=== PATIENT | female | born 1975 | race Caucasian/White ===

== ENCOUNTER 2025-11-25 03:12 | Day surgery (SDC) | payer BC, MEDICAID, SELFPAY ==
[2025-11-25] VITALS (14 sets, daily range): BP systolic 129–206; BP diastolic 82–121; PULSE 80–106; RESP 17–18; TEMP 36.2–36.9; O2SAT 98–100; BMI 25.7
--- NOTE | 2025-11-25 03:15 | XRR_ITS ---
PROCEDURE INFORMATION: Exam: XR Chest Exam date and time: 11/25/2025 3:21 AM Age: 49 years old Clinical indication: C/O food bolus in throat. Points just inferior to larynx where she feels it. ; Additional info: Dyspnea/cough TECHNIQUE: Imaging protocol: Radiologic exam of the chest. Views: 1 view. COMPARISON: No relevant prior studies available. FINDINGS: Lungs: Minor areas of bibasilar atelectasis or scarring. No consolidation. Pleural spaces: Unremarkable. No pleural effusion. No pneumothorax. Heart/Mediastinum: Large heart. Bones/joints: Unremarkable. XR/XR chest 1V portable [id number] IMPRESSION: 1. No definite acute finding. 2. Minor areas of bibasilar atelectasis or scarring.
--- OUTSIDE RECORDS SUMMARY | 2025-11-25 03:19 | XMS_ITS | Encounter Summary ---
Author Organization [facility] [place] Address [address] [facility] Attn: Epic Prelude ADT [place] [address] Care Team Providers Care General Office Clerk Name Role Phone Conversion, History Primary Care Provider Judy flores Encounter Details Date Type Department Care Team (Latest Contact Info) Description 07/26/1996 Emergency Melissa Patel, DO [address] [place] [address] Social History Tobacco Use Types Packs/Day Years Used Date Smoking Tobacco: Never Assessed Comments Unknown Sex and Gender Information Value Date Recorded Sex Assigned at Not on file Legal Sex Female 12:02 PM 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
--- OUTSIDE RECORDS SUMMARY | 2025-11-25 03:19 | XMS_ITS | Encounter Summary ---
Author Organization [employer] [facility] [facility] Address [address] [address] Care Team Providers Care Labor Expediter Name Role Phone Conversion, History Primary Care Provider Judy flores Encounter Details Date Type Department Care Team (Latest Contact Info) Description 10/20/2009 Outpatient Historical [facility] Conversion [address] [place] [address] Yony Viveros, DO [address] [place], [place] [id number] Anxiety State, Unspecified (Primary Dx); Issue of Repeat Prescriptions Social History Tobacco Use Types Packs/Day Years Used Date Smoking Tobacco: Never Assessed Comments Unknown Sex and Gender Information Value Date Recorded Sex Assigned at Not on file Legal Sex Female 12:02 PM 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
--- OUTSIDE RECORDS SUMMARY | 2025-11-25 03:19 | XMS_ITS | Encounter Summary ---
Author Organization [facility] Address [address] [facility] [place] [address] Care Team Providers Care Drilling Foreman Name Role Phone Conversion, History Primary Care Provider Judy flores Encounter Details Date Type Department Care Team (Late st Contact Info) Description 06/12/2006 Emergency [facility] Emergency Services [address] [facility] [place] [phone] Reid Antony MD [address] [facility] [place] [phone] Ed, Physician NO ADDRESS ON FILE Dysphagia (Primary Dx) Social History Tobacco Use Types Packs/Day Years Used Date Smoking Tobacco: Never Assessed Comments Unknown Sex and Gender Information Value Date Recorded Sex Assigned at Not on file Legal Sex Female 12:02 PM UPHOLSTERER INSIDE Gender Identity Not on file Sexual Orientation Not on file documented as of this encounter Plan of Treatment Not on file documented as of this encounter Visit Diagnoses Diagnosis Dysphagia- Primary documented in this encounter Care Teams Drilling Foreman Relationship Specialty Start Date End Date Conversion, History NO ADDRESS ON FILE PCP - General 06/30/09 07/14/13 documented as of this encounter
--- OUTSIDE RECORDS SUMMARY | 2025-11-25 03:19 | XMS_ITS | Encounter Summary ---
Author Organization [facility] Address [address] [facility] [place] [address] Care Team Providers Care Delinquent Notice Machine Operator Name Role Phone Conversion, History Primary Care Provider Judy flores Encounter Details Date Type Department Care Team (Late st Contact Info) Description 10/20/2009 Emergency [facility] Emergency Services [address] [facility] [place] [phone] Yony Viveros, DO [address] [place] [address] Ed, Physician NO ADDRESS ON FILE Anxiety State, Unspecified (Primary Dx) Social History Tobacco Use Types Packs/Day Years Used Date Smoking Tobacco: Never Assessed Comments Unknown Sex and Gender Information Value Date Recorded Sex Assigned at Not on file Legal Sex Female 12:02 PM CURATOR OF COLLECTIONS Gender Identity Not on file Sexual Orientation Not on file documented as of this encounter Plan of Treatment Not on file documented as of this encounter Visit Diagnoses Diagnosis Anxiety state, unspecified- Primary documented in this encounter Care Teams Delinquent Notice Machine Operator Relationship Specialty Start Date End Date Conversion, History NO ADDRESS ON FILE PCP - General 06/30/09 07/14/13 documented as of this encounter
--- OUTSIDE RECORDS SUMMARY | 2025-11-25 03:19 | XMS_ITS | Encounter Summary ---
Author Organization [employer] [facility] Address [address] [address] Care Team Providers Care Him Specialist Name Role Phone Conversion, History Primary Care Provider Judy flores Encounter Details Date Type Department Care Team (Latest Contact Info) Description 03/09/2010 Outpatient Historical [facility] Conversion [address] [facility] [place] [address] Luis Antonio Mack MD NO ADDRESS ON FILE Contact Dermatitis and Other Eczema due to Plants (except Food) (Primary Dx) Social History Tobacco Use Types Packs/Day Years Used Date Smoking Tobacco: Never Assessed Comments Unknown Sex and Gender Information Value Date Recorded Sex Assigned at Not on file Legal Sex Female 12:02 PM 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
--- OUTSIDE RECORDS SUMMARY | 2025-11-25 03:19 | XMS_ITS | Encounter Summary ---
Author Organization [facility] Address [address] [address] Care Team Providers Care Food Service Clerk Name Role Phone Conversion, History Primary Care Provider Judy flores Encounter Details Date Type Department Care Team (Latest Contact Info) Description 03/15/2008 Inpatient Historical Historical [facility] Lab Conversion, History NO ADDRESS ON FILE Hirsutism (Primary Dx) Social History Tobacco Use Types Packs/Day Years Used Date Smoking Tobacco: Never Assessed Comments Unknown Sex and Gender Information Value Date Recorded Sex Assigned at Not on file Legal Sex Female 12:02 PM COAT EXAMINER Gender Identity Not on file Sexual Orientation Not on file documented as of this encounter Plan of Treatment Not on file documented as of this encounter Visit Diagnoses Diagnosis Hirsutism- Primary documented in this encounter Care Teams Food Service Clerk Relationship Specialty Start Date End Date Conversion, History NO ADDRESS ON FILE PCP - General 06/30/09 07/14/13 documented as of this encounter
--- OUTSIDE RECORDS SUMMARY | 2025-11-25 03:19 | XMS_ITS | Clinical Summary ---
Author Organization [facility] Address [address] [facility] [place] [address] Phone Care Team Providers Care Manager Career Name Role Phone Unavailable Primary Care Provider Unavailabl e Allergies Active Allergy Reactions Criticality Noted Date Comments Penicillins Unknown 07/15/2013 States her mother states don't take Medications methylPREDNISol one (Medrol, Ck,) 4 mg Tablets, Dose PackIndications :Postviral syndrome,Cough, Sore throat,Allergic rhinitis, unspecified seasonality, unspecified trigger As directed 1 Each 02/24/20 20 Active fluticasone propionate (FLONASE) 50 mcg/spray Rossiter, Suspension nasal inhalerIndicati ons:Postviral syndrome,Cough, Sore throat,Allergic rhinitis, unspecified seasonality, unspecified trigger Administer 2 Sprays in each nostril daily. 16 Gram 02/24/20 20 Active phenylephrine-g uaiFENesin 10-400 mg TabletIndicatio ns:Postviral syndrome,Cough, Sore throat,Allergic rhinitis, unspecified seasonality, unspecified trigger Take 1 Tablet by mouth 4 times daily as needed (congestion). 30 Tablet 02/24/20 20 Active promethazine-de xtromethorphan (PHENERGAN-DM) 6.25-15 mg/5 mL syrupIndication s:Postviral syndrome,Cough, Sore throat,Allergic rhinitis, unspecified seasonality, unspecified trigger Take 5 mL by mouth every 4 hours as needed for Cough. 240 mL 1 02/24/20 20 Active diphenhydrAMINE 12.5 mg/5 mL-viscous lidocaine-Maalo x 1:1:1 (MAGIC MOUTHWASH) oral suspension compoundIndicat ions:Postviral syndrome,Cough, Sore throat,Allergic rhinitis, unspecified seasonality, unspecified trigger Take 5 mL by mouth see administration instructions. 50 mL each; gargle and spit 10 ml QID prn sore throat 150 mL 02/24/20 20 Active LORazepam (ATIVAN) 2 mg tablet Take 2 mg by mouth every 8 hours as needed for Anxiety. Active predniSONE (DELTASONE) 10 mg tablet 3 tabs p.o. daily for 3 days, 2 tabs p.o. daily for 3 days, 1 tab p.o. daily for 5 days. 20 Tablet None 07/14/20 20 Active Active Problems Problem Noted Date Diagnosed Date Food impaction of esophagus 12/06/2019 Cellulitis and abscess of face 06/02/2014 Spider bite wound 06/02/2014 Diabetes mellitus type 2, controlled Polycystic ovarian syndrome Dysphagia Eosinophilic esophagitis Immunizations Immunization Administration Dates Next Due INFLUENZA VACCINE QUADRIVALENT 3 YR UP PF IM Influenza Seasonal Unspecified Formulation IM Family History Medical History Relation Name Comments Healthy Brother 1 Healthy Brother 2 Healthy Father Unknown Father Healthy Mother Hypertension Mother Other Mother Relation Name Status Comments Brother 1 Alive Brother 2 Alive Father Alive Mother Alive Social History Tobacco Use Types Packs/Day Years Used Date Smoking Tobacco: Never Smokeless Tobacco: Never Tobacco Cessation:Counseling Given: No Alcohol Use Standard Drinks/Week Comments No 0 (1 standard drink = 0.6 oz pur e alcohol) Comments No Sex and Gender Information Value Date Recorded Sex Assigned at Not on file Legal Sex Female 12:02 PM WOOD CARVER HAND Gender Identity Not on file Sexual Orientation Not on file Occupation Industry Job Start Date Job End Date Not on file Not on file Not on file Not on file Last Filed Vital Signs Vital Sign Reading Time Taken Comments Blood Pressure 158/93 07/14/2020 2:01 AM CDT Pulse 114 02/24/2020 11:16 AM CDT Temperature 37.2 C (98.9 F) 07/14/2020 2:01 AM CDT Respiratory Rate 20 07/14/2020 2:01 AM CDT Oxygen Saturation 100% 07/14/2020 2:01 AM CDT Inhaled Oxygen Concentration - - Weight 81 kg (178 lb 9.2 oz) 07/14/2020 2:01 AM CDT Height 162.6 cm (5' 4 ) 02/24/2020 11:16 AM CDT Body Mass Index 30.65 02/24/2020 11:16 AM CDT Plan of Treatment Health Maintenance Due Date Last Done Comments DIABETES ANNUAL FOOT EXAM 1995 DIABETES ANNUAL RETINAL EXAM 1995 DIABETES HBA1C Q 6 MONTHS 1995 DIABETES MICROALBUMIN ANNUAL SCREEN 1995 LDL CHOLESTEROL ANNUAL 1995 DTAP/TDAP/TD VACCINES (1 - Tdap) 1996 HEPATITIS B VACCINES (1 of 3 - 19+ 3-dose series) 1996 HPV/Cotest (21-29) 1998 CERVICAL CANCER SCREENING 2007 HPV/Cotest (30-65) 2007 PAP SMEAR 2007 BREAST CANCER SCREENING 2017 COLORECTAL SCREENING 2022 Colorectal Cancer Screening 2022 FIT-DNA Q 3 years 2022 FIT/FOBT Q 1 year 2022 Flex Sig/CT Colonography Q 5 years 2022 INFLUENZA VACCINE (#1) 2025 08/30/2019, 2014 Advance Directives For more information, please contact: [phone] * Full Code (Latest Code Status on File) Date Activated Date Inactivated Comments 12/06/2019 12:49 AM 12/06/2019 5:55 PM * Full Code Date Activated Date Inactivated Comments 12/23/2017 11:17 PM 12/24/2017 2:20 AM * Full Code Date Activated Date Inactivated Comments 06/02/2014 12:32 PM 06/05/2014 4:33 PM * Full Code Date Activated Date Inactivated Comments 06/02/2014 12:32 PM 06/02/2014 12:32 PM
--- OUTSIDE RECORDS SUMMARY | 2025-11-25 03:19 | XMS_ITS | Encounter Summary ---
Author Organization [facility] Address [address] [facility] [place] [address] Care Team Providers Care Station Cleaning Porter Name Role Phone Conversion, History Primary Care Provider Judy flores Encounter Details Date Type Department Care Team (Late st Contact Info) Description 03/09/2010 Emergency [facility] Emergency Services [address] [facility] [place] [phone] Luis Antonio Mack MD NO ADDRESS ON FILE Ed, Physician NO ADDRESS ON FILE Contact Dermatitis and Other Eczema due to Plants (except Food) (Primary Dx) Social History Tobacco Use Types Packs/Day Years Used Date Smoking Tobacco: Never Assessed Comments Unknown Sex and Gender Information Value Date Recorded Sex Assigned at Not on file Legal Sex Female 12:02 PM 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
--- OUTSIDE RECORDS SUMMARY | 2025-11-25 03:19 | XMS_ITS | Encounter Summary ---
Author Organization [facility] Address [address] [facility] Attn: Epic Prelude ADT [place] [address] Care Team Providers Care Personnel Quality Assurance Auditor Name Role Phone Conversion, History Primary Care Provider Judy flores Encounter Details Date Type Department Care Team (Latest Contact Info) Description 04/04/1996 Emergency Plaster, Bull Soto MD NO ADDRESS ON FILE Social History Tobacco Use Types Packs/Day Years Used Date Smoking Tobacco: Never Assessed Comments Unknown Sex and Gender Information Value Date Recorded Sex Assigned at Not on file Legal Sex Female 12:02 PM 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
--- OUTSIDE RECORDS SUMMARY | 2025-11-25 03:19 | XMS_ITS | Encounter Summary ---
Author Organization [facility] Address [address] [facility] [place] [address] Care Team Providers Care Copy Reader Name Role Phone Conversion, History Primary Care Provider Judy flores Encounter Details Date Type Department Care Team (Late st Contact Info) Description 06/09/2006 Emergency [facility] Emergency Services [address] [facility] [place] [phone] Reid Antony MD [address] [facility] [place] [phone] Ed, Physician NO ADDRESS ON FILE Dysphagia (Primary Dx) Social History Tobacco Use Types Packs/Day Years Used Date Smoking Tobacco: Never Assessed Comments Unknown Sex and Gender Information Value Date Recorded Sex Assigned at Not on file Legal Sex Female 12:02 PM 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
--- OUTSIDE RECORDS SUMMARY | 2025-11-25 03:19 | XMS_ITS | Encounter Summary ---
Author Organization [facility] Address [address] [address] Care Team Providers Care Oracle Sql Developer Name Role Phone Conversion, History Primary Care Provider Judy flores Encounter Details Date Type Department Care Team (Latest Contact Info) Description 09/15/2008 Inpatient Historical Historical [facility] Rad Conversion, History NO ADDRESS ON FILE Polycystic Ovaries (Primary Dx) Social History Tobacco Use Types Packs/Day Years Used Date Smoking Tobacco: Never Assessed Comments Unknown Sex and Gender Information Value Date Recorded Sex Assigned at Not on file Legal Sex Female 12:02 PM SENIOR SPECIALIST Gender Identity Not on file Sexual Orientation Not on file documented as of this encounter Plan of Treatment Not on file documented as of this encounter Visit Diagnoses Diagnosis Polycystic ovaries- Primary documented in this encounter Care Teams Oracle Sql Developer Relationship Specialty Start Date End Date Conversion, History NO ADDRESS ON FILE PCP - General 06/30/09 07/14/13 documented as of this encounter
--- OUTSIDE RECORDS SUMMARY | 2025-11-25 03:19 | XMS_ITS | Encounter Summary ---
Author Organization [facility] Address [address] [facility] [place] [address] Care Team Providers Care Academic Services Professional Name Role Phone Conversion, History Primary Care Provider Judy flores Encounter Details Date Type Department Care Team (Late st Contact Info) Description 01/19/2008 Emergency [facility] Emergency Services [address] [facility] [place] [phone] Debo Hawkins MD [address] [place] [address] [address] Ed, Physician NO ADDRESS ON FILE Acute Pharyngitis (Primary Dx) Social History Tobacco Use Types Packs/Day Years Used Date Smoking Tobacco: Never Assessed Comments Unknown Sex and Gender Information Value Date Recorded Sex Assigned at Not on file Legal Sex Female 12:02 PM OFFICE HELPER Gender Identity Not on file Sexual Orientation Not on file documented as of this encounter Plan of Treatment Not on file documented as of this encounter Visit Diagnoses Diagnosis Acute pharyngitis- Primary documented in this encounter Care Teams Academic Services Professional Relationship Specialty Start Date End Date Conversion, History NO ADDRESS ON FILE PCP - General 06/30/09 07/14/13 documented as of this encounter
--- OUTSIDE RECORDS SUMMARY | 2025-11-25 03:19 | XMS_ITS | Encounter Summary ---
Author Organization [facility] Address [address] [address] Care Team Providers Care Relocation Counselor Name Role Phone Conversion, History Primary Care Provider Judy flores Encounter Details Date Type Department Care Team (Latest Contact Info) Description 01/07/2008 Inpatient Historical Historical [facility] Lab Conversion, History NO ADDRESS ON FILE Esophageal Reflux (Primary Dx) Social History Tobacco Use Types Packs/Day Years Used Date Smoking Tobacco: Never Assessed Comments Unknown Sex and Gender Information Value Date Recorded Sex Assigned at Not on file Legal Sex Female 12:02 PM CLAIM ADMINISTRATOR Gender Identity Not on file Sexual Orientation Not on file documented as of this encounter Plan of Treatment Not on file documented as of this encounter Visit Diagnoses Diagnosis Esophageal reflux- Primary documented in this encounter Care Teams Relocation Counselor Relationship Specialty Start Date End Date Conversion, History NO ADDRESS ON FILE PCP - General 06/30/09 07/14/13 documented as of this encounter
--- OUTSIDE RECORDS SUMMARY | 2025-11-25 03:19 | XMS_ITS | Encounter Summary ---
Author Organization [facility] Address [address] [place] [address] Care Team Providers Care Shed Workers Supervisor Name Role Phone Conversion, History Primary Care Provider Judy flores Encounter Details Date Type Department Care Team (Latest Contact Info) Description 09/18/2005 Outpatient Historical Imaging Services [address] [place] [phone] Eric Chacon MD [address] [place] [address], [place] [address] HIRSUTISM (Primary Dx) Social History Tobacco Use Types Packs/Day Years Used Date Smoking Tobacco: Never Assessed Comments Unknown Sex and Gender Information Value Date Recorded Sex Assigned at Not on file Legal Sex Female 12:02 PM 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
--- OUTSIDE RECORDS SUMMARY | 2025-11-25 03:19 | XMS_ITS | Encounter Summary ---
Author Organization [facility] Address [address] [facility] [place] [address] Care Team Providers Care Science And Operations Officer Name Role Phone Conversion, History Primary Care Provider Judy flores Encounter Details Date Type Department Care Team (Late st Contact Info) Description 09/06/[address] [facility] Emergency Services [address] [facility] [place] [address] Donna Sharpe (Danny)MD [address] [address] [place] [address] Dysphagia, Unspecified (Primary Dx) Social History Tobacco Use Types Packs/Day Years Used Date Smoking Tobacco: Never Assessed Comments Unknown Sex and Gender Information Value Date Recorded Sex Assigned at Not on file Legal Sex Female 12:02 PM HOSPITAL EDUCATION COORDINATOR Gender Identity Not on file Sexual Orientation Not on file documented as of this encounter Plan of Treatment Not on file documented as of this encounter Visit Diagnoses Diagnosis Dysphagia, unspecified(787.20)- Primary Dysphagia, unspecified documented in this encounter Care Teams Science And Operations Officer Relationship Specialty Start Date End Date Conversion, History NO ADDRESS ON FILE PCP - General 06/30/09 07/14/13 documented as of this encounter
--- OUTSIDE RECORDS SUMMARY | 2025-11-25 03:19 | XMS_ITS | Encounter Summary ---
Author Organization [facility] Address [address] [address] Care Team Providers Care Diaper Machine Tender Name Role Phone Conversion, History Primary Care Provider Judy flores Encounter Details Date Type Department Care Team (Latest Contact Info) Description 11/08/2009 Outpatient Historical JOPL Conversion [address] [place] [address] [facility] [address] [phone] Dysphagia, Unspecified (Primary Dx); Unspecified Esophagitis Social History Tobacco Use Types Packs/Day Years Used Date Smoking Tobacco: Never Assessed Comments Unknown Sex and Gender Information Value Date Recorded Sex Assigned at Not on file Legal Sex Female 12:02 PM PATTERN STORAGE CLERK Gender Identity Not on file Sexual Orientation Not on file documented as of this encounter Plan of Treatment Not on file documented as of this encounter Visit Diagnoses Diagnosis Dysphagia, unspecified(787.20)- Primary Dysphagia, unspecified Esophagitis, unspecified documented in this encounter Care Teams Diaper Machine Tender Relationship Specialty Start Date End Date Conversion, History NO ADDRESS ON FILE PCP - General 06/30/09 07/14/13 documented as of this encounter
--- OUTSIDE RECORDS SUMMARY | 2025-11-25 03:19 | XMS_ITS | Encounter Summary ---
Author Organization [facility] Address [address] [facility] [place] [address] Care Team Providers Care Fagoter Name Role Phone Conversion, History Primary Care Provider Judy flores Encounter Details Date Type Department Care Team (Late st Contact Info) Description 01/05/2011 Emergency [facility] Emergency Services [address] [facility] [place] [address] Charlotte Duran, DO [address] [place] [address] Ed, Physician NO ADDRESS ON FILE Periapical abscess without sinus (Primary Dx) Social History Tobacco Use Types Packs/Day Years Used Date Smoking Tobacco: Never Assessed Comments Unknown Sex and Gender Information Value Date Recorded Sex Assigned at Not on file Legal 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
--- OUTSIDE RECORDS SUMMARY | 2025-11-25 03:19 | XMS_ITS | Encounter Summary ---
Author Organization [facility] Address [address] [address] Care Team Providers Care Veneer Glue Jointer Feedback Name Role Phone Conversion, History Primary Care Provider Judy flores Encounter Details Date Type Department Care Team (Latest Contact Info) Description 05/13/2006 Inpatient Historical Historical [facility] Joseph Khanna MD [address] [facility] [place] [phone] (Work) Other Ovarian Hyperfunction (Primary Dx) Social History Tobacco Use Types Packs/Day Years Used Date Smoking Tobacco: Never Assessed Comments Unknown Sex and Gender Information Value Date Recorded Sex Assigned at Not on file 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
--- OUTSIDE RECORDS SUMMARY | 2025-11-25 03:19 | XMS_ITS | Encounter Summary ---
Author Organization [facility] Address [address] [facility] [place] [address] Care Team Providers Care Lump Maker Name Role Phone Conversion, History Primary Care Provider Judy flores Encounter Details Date Type Department Care Team (Late st Contact Info) Description 06/09/2006 Emergency [facility] Emergency Services [address] [place] [phone] Franky Haider, DO [address] [place] [address] Sj Ed, Physician NO ADDRESS ON FILE Dysphagia (Primary Dx) Social History Tobacco Use Types Packs/Day Years Used Date Smoking Tobacco: Never Assessed Comments Unknown Sex and Gender Information Value Date Recorded Sex Assigned at Not on file 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
--- OUTSIDE RECORDS SUMMARY | 2025-11-25 03:19 | XMS_ITS | Clinical Summary ---
Author Organization [facility] Address [address] [place]: Epic Prelude ADT [place] [address] Care Team Providers Care Vault Attendant Name Role Phone Unavailable Primary Care Provider Unavailabl e Allergies Active Allergy Reactions Criticality Noted Date Comments Penicillins Unknown 07/15/2013 States her mother states don't take Medications fluticasone propionate (FLONASE) 50 mcg/spray [place], Suspension nasal inhalerIndicati ons:Postviral syndrome,Cough, Sore throat,Allergic rhinitis, unspecified seasonality, unspecified trigger Administer 2 Sprays in each nostril daily. 16 Gram 0 0 Active methylPREDNISol one (MEDROL DOSPACK) 4 mg Tablets, Dose Pack Take as per the instructions on the package 21 Tablet 1 Active ondansetron (ZOFRAN) 4 mg Tablet Take 1 Tablet (4 mg) by mouth every 8 hours as needed for Nausea. 20 Tablet 1 Active ibuprofen (MOTRIN) 800 mg tablet Take 1 Tablet (800 mg) by mouth every 8 hours as needed for Pain, Moderate or Pain, Severe. 25 Tablet 1 4 Active Active Problems Problem Noted Date Diagnosed Date Food impaction of esophagus 12/06/2019 Spider bite wound 06/02/2014 Cellulitis and abscess of face 06/02/2014 Polycystic ovarian syndrome Diabetes mellitus type 2, controlled Dysphagia Eosinophilic esophagitis Immunizations Immunization Administration Dates [...] Date Smoking Tobacco: Never Smokeless Tobacco: Never Alcohol Use Standard Drinks/Week Comments No 0 (1 standard drink = 0.6 oz pur e alcohol) Feeling Safe Answer Date Recorded Are you in a relationship wi th someone who hurts you emotionally and/or physically? 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 Gender Identity Not on file Sexual Orientation Not on file Last Filed Vital Signs Vital Sign Reading Time Taken Comments Blood Pressure 175/91 04/15/2025 6:35 AM CDT Pulse 112 05/24/2024 12:45 AM CDT Temperature 36.4 C (97.5 F) 04/15/2025 6:35 AM CDT Respiratory Rate 16 04/15/2025 6:35 AM CDT Oxygen Saturation 100% 04/15/2025 6:35 AM CDT Inhaled Oxygen Concentration - - Weight 65.8 kg (145 lb) 04/15/2025 6:35 AM CDT Height 162.6 cm (5' 4 ) 04/15/2025 6:35 AM CDT Body Mass Index 24.89 04/15/2025 6:35 AM CDT Plan of Treatment Health Maintenance Due Date Last Done Comments DIABETES ANNUAL FOOT EXAM 1995 DIABETES ANNUAL RETINAL EXAM 1995 DIABETES HBA1C Q 6 MONTHS 1995 DIABETES MICROALBUMIN ANNUAL SCREEN 1995 LDL CHOLESTEROL ANNUAL 1995 DTAP/TDAP/TD VACCINES (1 - Tdap) 1996 HEPATITIS B VACCINES (1 of 3 - 19+ 3-dose series) 1996 HPV/Cotest (21-29) 1998 CERVICAL CANCER SCREENING 2007 HPV/Cotest (30-) 2007 PAP SMEAR 2007 BREAST CANCER SCREENING 2017 COLORECTAL SCREENING 2022 Colorectal Cancer Screening 2022 FIT-DNA Q 3 years 2022 FIT/FOBT Q 1 year 2022 Flex Sig/CT Colonography Q 5 years 2022 INFLUENZA VACCINE (#1) 2025 08/30/2019, 2014 Insurance [facility] MEDICAID
--- OUTSIDE RECORDS SUMMARY | 2025-11-25 03:19 | XMS_ITS | Encounter Summary ---
Author Organization [facility] Address [address] [address] Care Team Providers Care Systems Integrator Name Role Phone Conversion, History Primary Care Provider Judy flores Encounter Details Date Type Department Care Team (Latest Contact Info) Description 11/06/2008 Inpatient Historical [facility] [place] [address] [facility] [place] [phone] Rivera Rosales MD [address] 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
--- OUTSIDE RECORDS SUMMARY | 2025-11-25 03:19 | XMS_ITS | Encounter Summary ---
Author Organization [facility] Address [address] [facility] [place] [address] Care Team Providers Care Principal Android Developer Name Role Phone Conversion, History Primary Care Provider Judy flores Encounter Details Date Type Department Care Team (Late st Contact Info) Description 12/29/2007 Emergency [facility] Emergency Services [address] [facility] [place] [phone] Fermín Oscar MD NO ADDRESS ON FILE Ed, Physician NO ADDRESS ON FILE Urinary Tract Infection, Site not Specified (Primary Dx) Social History Tobacco Use Types Packs/Day Years Used Date Smoking Tobacco: Never Assessed Comments Unknown Sex and Gender Information Value Date Recorded Sex Assigned at Not on file Legal 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
--- OUTSIDE RECORDS SUMMARY | 2025-11-25 03:19 | XMS_ITS | Encounter Summary ---
Author Organization [facility] Address [address] [facility] [address] [place] [address] Care Team Providers Care Metallurgical Engineering Teacher Name Role Phone Conversion, History Primary Care Provider Judy flores Encounter Details Date Type Department Care Team (Late st Contact Info) Description 09/27/2008 Emergency [facility] Emergency Services [address] [facility] [place] [phone] Jonas Kidd DO NO ADDRESS ON FILE Ed, Physician NO ADDRESS ON FILE Contusion of Face, Scalp, and Neck except Eye(s) (Primary Dx) Social History Tobacco Use Types Packs/Day Years Used Date Smoking Tobacco: Never Assessed Comments Unknown Sex and Gender Information Value Date Recorded Sex Assigned at Not on file Legal 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
--- OUTSIDE RECORDS SUMMARY | 2025-11-25 03:19 | XMS_ITS | Encounter Summary ---
Author Organization [facility] Address [address] [facility] [place] [address] Care Team Providers Care Staff Mine Warfare Officer Name Role Phone Conversion, History Primary Care Provider Judy flores Encounter Details Date Type Department Care Team (Late st Contact Info) Description 10/23/2008 Emergency [facility] Emergency Services [address] [facility] [place] [phone] Christopher Uriostegui MD [address] [place] [phone] Ed, Physician NO ADDRESS ON FILE Insect Bite Head (Primary Dx) Social History Tobacco Use Types Packs/Day Years Used Date Smoking Tobacco: Never Assessed Comments Unknown Sex and Gender Information Value Date Recorded Sex Assigned at Not on file 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
--- OUTSIDE RECORDS SUMMARY | 2025-11-25 03:19 | XMS_ITS | Encounter Summary ---
Author Organization [employer] [facility] Address [address] [address] Care Team Providers Care Fur Designer Name Role Phone Conversion, History Primary Care Provider Judy flores Encounter Details Date Type Department Care Team (Latest Contact Info) Description 01/05/2011 Outpatient Historical JOP[facility] Conversion [address] [facility] [place] [address] Roger Artis, Franky Mccollum, [address] [place] [address] Periapical abscess without sinus (Primary Dx); Unspecified disorder of the teeth and supporting structures Social History Tobacco Use Types Packs/Day Years Used Date Smoking Tobacco: Never Assessed Comments Unknown Sex and Gender Information Value Date Recorded Sex Assigned at Not on file Legal Sex Female 12:02 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
--- OUTSIDE RECORDS SUMMARY | 2025-11-25 03:19 | XMS_ITS | Encounter Summary ---
Author Organization [facility] Address [address] [facility] [place] [address] Care Team Providers Care Mend Worker Name Role Phone Conversion, History Primary Care Provider Judy flores Encounter Details Date Type Department Care Team (Late st Contact Info) Description 06/30/2009 Emergency [facility] Emergency Services [address] [place] [phone] Christopher Uriostegui MD [address] [place] [phone] Ed, Physician NO ADDRESS ON FILE Contact Dermatitis and Other Eczema due to Plants (except Food) (Primary Dx) Social History Tobacco Use Types Packs/Day Years Used Date Smoking Tobacco: Never Assessed Comments Unknown Sex and Gender Information Value Date Recorded Sex Assigned at Not on file Legal Sex Female 12:02 PM DENIAL MANAGEMENT 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
--- NOTE | 2025-11-25 03:25 | ED_ITS ---
HPI - General Adult 2 General: Chief complaint: Airway/Esophagus Foreign Body Stated complaint: Food Bolus Time Seen by Provider: 11/25/25 03:17 History of Present Illness: 49-year-old female presents emergency ro om complaint difficulty swallowing. She think she has an esophageal food bolus she has had this multiple times in the past. Associated symptoms: Deny chest pain, dyspnea or rash Related Data Allergies Allergy/AdvReac Type Severity Reaction Status Date / Time Penicillins Allergy Unknown Verified 11/25/25 03:23 Review of Systems 2 Const: Denies: fever(s) or chills Card: Denies: chest pain Resp: Denies: dyspnea GI: Denies: abdominal pain : Denies: dysuria, urinary frequency or urinary urgency Musc: Denies: neck pain or back pain Skin/Breast: Denies: rash Physical Exam 2 Const: GENERAL APPEARANCE: cooperative ORIENTATION/CONSCIOUSNESS: Yes awake, Yes oriented to person, Yes oriented to place and Yes oriented to time HENMT: COMMON NORMALS: normocephalic, atraumatic and hearing grossly normal bilaterally HEAD & SCALP: normocephalic and atraumatic Resp: COMMON NORMALS: normal respiratory effort, No retractions, No use of accessory muscles and clear to auscultation bilaterally AUSCULTATION: clear to auscultation bilaterally Cardio: COMMON NORMALS: regular rate, regular rhythm and No murmurs present (Cardio) RATE: regular rate RHYTHM: regular rhythm GI: COMMON NORMALS: Soft to palpation and No hepatosplenomegaly present A USCULTATION: Yes normoactive bowel sounds PALPATION: Yes Soft to palpation, No Tenderness to palpation present (GI), No Guarding due to palpation present (GI) and Yes No hepatosplenomegaly present Extremity: COMMON NORMALS: normal to inspection, capillary refill normal, no clubbing, cyanosis or edema, no calf tenderness and no pedal edema Neuro: SENSORIUM/ORIENTATION: Yes oriented to person, Yes oriented to place and Yes oriented to time Skin: COMMON NORMALS: no rashes or lesions noted GENERAL SKIN EXAM: no rashes or lesions noted Course 2 Vital Signs: Vital signs: Vital Signs Temperature 98.5 F 11/25/25 03:20 Pulse Rate 106 H 11/25/25 03:20 Respiratory Rate 18 11/25/25 03:20 Blood Pressure 185/116 11/25/25 04:08 Pulse Oximetry 100 11/25/25 04:08 Oxygen Delivery Me thod Room Air 11/25/25 04:08 MDM - General Adult Medical Decision Making Esophageal food bolus began at 9:00 tonight. Patient given glucagon single dose. Chest x-ray is normal. White count 12 5 hemoglobin 14.7 patient has no respiratory compromise and is stable at this time blood pressure is mildly elevated. Will give a single dose of labetalol.. Discussed with on-call surgery. Patient will go for EGD to relieve the food bolus Lab Data 11/25/25 03:24 11/25/25 03:24 Laboratory Results WBC 12.52 10^3/uL (3.29-11.43) H 11/25/25 03:24 RBC 4.98 10^6/uL (3.85-5.65) 11/25/25 03:24 Hgb 14.70 g/dL (11.27-16.99) 11/25/25 03:24 Hct 44.9 % (36-47) 11/25/25 03:24 MCV 90.2 fl (85-98) 11/25/25 03:24 MCH 29.5 pg (27-33) 11/25/25 03:24 MCHC 32.7 g/dL (30-55) 11/25/25 03:24 RDW 12.7 % (12.1-15.1) 11/25/25 03:24 Plt Count 401 10^3/cmm (157-399) H 11/25/25 03:24 MPV 9.9 fL (7.4-10.4) 11/25/25 03:24 Neut % (Auto) 51.7 % 11/25/25 03:24 Lymph % (Auto) 28.7 % 11/25/25 03:24 Irion % (Auto) 7.5 % 11/25/25 03:24 Eos % (Auto) 10.4 % 11/25/25 03:24 Baso % (Auto) 1.3 % 11/25/25 03:24 Neut # (Auto) 6.48 10^3/uL (1.8-7.7) 11/25/25 03:24 Lymph # (Auto) 3.6 10^3/uL (0.8-4.8) 11/25/25 03:24 Irion # (Auto) 0.9 10^3/uL (0.2-0.9) 11/25/25 03:24 Eos # (Auto) 1.3 10^3/uL (0.0-0.8) H 11/25/25 03:24 Baso # (Auto) 0.2 10^3/uL (0.0-0.1) H 11/25/25 03:24 Nucleated RBC % (auto) 0 % 11/25/25 03:24 Nucleated RBCs # 0.0 /100WBC 11/25/25 03:24 Sodium 138 mmol/L (136-145) 11/25/25 03:24 Potassium 4.3 mmol/L (3.5-5.1) 11/25/25 03:24 Chloride 100 mmol/L (98-107) 11/25/25 03:24 Carbon Dioxide 31 mmol/L (22-29) H 11/25/25 03:24 Anion Gap 11.3 (5-19) 11/25/25 03:24 BUN 9 mg/dL (6-20) 11/25/25 03:24 Creatinine 0.7 mg/dL (0.5-0.9) 11/25/25 03:24 GFR Calculation 89.7 mL/min (90-130) L 11/25/25 03:24 Glucose 90 mg/dL (65-115) 11/25/25 03:24 Calculated Osmolality 284 mOsm/kg (285-295) L 11/25/25 03:24 Calcium 9.7 mg/dL (8.5-10.5) 11/25/25 03:24 Total Bilirubin 0.2 mg/dL (0.15-1.2) 11/25/25 03:24 AST 25 U/L (0-32) 11/25/25 03:24 ALT 23 U/L (0-33) 11/25/25 03:24 Alkaline Phosphatase 114 U/L (35-105) H 11/25/25 03:24 Total Protein 8.2 g/dL (6.6-8.7) 11/25/25 03:24 Albumin 4.4 g/dL (3.5-5.2) 11/25/25 03:24 Globulin 3.8 g/dL (1.3-4.6) 11/25/25 03:24 All radiology interpretation(s) finalized by discharge Discharge Plan Discharge Patient Disposition: Placed in Observation Clinical Impression: Esophageal obstruction due to food impaction, Hypertension Coding Level of Care Code ED Demand Generator Manager for Tianna Ramos
[2025-11-25 03:41] LABS: Hematocrit 44.9 % (36-47); Hemoglobin 14.70 g/dL (11.27-16.99); Mean Corpuscular HGB Conc 32.7 g/dL (30-55); Mean Corpuscular Hemoglobin 29.5 pg (27-33); Mean Corpuscular Volume 90.2 fl (85-98); Nucleated Red Blood Cells % 0 %; Platelet Count 401 10^3/cmm (157-399); Red Blood Count 4.98 10^6/uL (3.85-5.65); White Blood Count 12.52 10^3/uL (3.29-11.43)
[2025-11-25 03:56] LABS: Alanine Aminotransferase 23 U/L (0-33); Albumin Level 4.4 g/dL (3.5-5.2); Alkaline Phosphatase 114 U/L (35-105); Aspartate Amino Transferase 25 U/L (0-32); Blood Urea Nitrogen 9 mg/dL (6-20); Calcium 9.7 mg/dL (8.5-10.5); Carbon Dioxide 31 mmol/L (22-29); Chloride 100 mmol/L (98-107); Globulin 3.8 g/dL (1.3-4.6); Glucose 90 mg/dL (65-115); Osmolality Calculated 284 mOsm/kg (285-295); Sodium 138 mmol/L (136-145); Total Protein 8.2 g/dL (6.6-8.7)
[2025-11-25 03:59] LABS: Anion Gap 11.3 (5-19); Potassium 4.3 mmol/L (3.5-5.1)
[2025-11-25] MEDS: labetalol 5 mg/mL SDV 20mL 10 MG IVP (04:03)
--- NOTE | 2025-11-25 04:42 | P.CONIM_ITS ---
Providers/Reason For Consult 2 Consulting Physician/Specialty*: shona romero MD general surgery Reason for Consult*: esophageal food foreign body Requesting Physician: MD arnaud ER provider History of Present Illness History of Present Illness Maliha Santillan is a 49 year old female visiting relatives from [place] who has had food get stuck in upper and lower esophagus requiring extraction and dilations yearly. Last dilation two years ago. She ate a ham sandwich and feels it is stuck in upper esophagus. She is not on any strong blood thinner. No episodes of SOB or cyanosis with choking/coughing. Review of Systems 2 Narrative: Constitutional: denies rigors, singnificant weight gain, increased appetite HEENT: denies chronic cough, blurry vision, excessive tearing, eye pain, flashing lights, odynophagia, painful mastication, change in voice, change in taste, chronic sore throat, hypersalivation Heart: denies racing heart, palpitations, othropnea, PND Lungs: denies hemoptysis, pain with deep inspiration, chronic bronchitis GI: denies hematemesis, hematochezia, tenesmus : denies polyuria, hematuria, painful micturation Musculoskeletal: denies hemarthrosis, Muscle wasting, change in amubation Neuro: denies new onset syncope, dysesthesia, dysequilibrium, ptosis eyelid or face SKin: denies new onset hyperalgia, new rash new cyanosis Endocrine: denies new polyuria, polydipsia, polyphagia, heat intolerance, excessive energy Hem/Onc: denies new petechiae, swollen glands, new excessive epstaxis Psych: denies racing thought Medications/Allergies Allergies Allergy/AdvReac Type Severity Reaction Status Date / Time Penicillins Allergy Unknown Verified 11/25/25 03:23 Vitals/I&O/Wt Last Vital Signs Temp 98.5 F 11/25/25 03:20 Pulse 85 11/25/25 04:31 Resp 18 11/25/25 03:20 BP 163/109 11/25/25 04:31 Pulse Ox 99 11/25/25 04:31 O2 Del Method Room Air 11/25/25 04:08 11/24/25 11/24/25 11/25/25 14:59 22:59 06:59 Intake Total 0 / 0 Balance 0 / 0 Weight last 48 hrs Weight 150 lb Physical Exam 2 Narrative: Abdomen: soft and nontender lungs: clear Heart: regular Data 11/25/25 03:24 11/25/25 03:24 A&P Assessment and plan 1. Esophageal obstruction due to food impaction: Plan: Patient will have upper endoscopy with extraction of foreign body. She understands risks, benefits and alternatives and wishes to proceed. Risks are bleeding, infection, cardiopulmonary problems, perforation, missed lesion, aspiration, more procedures, recurrence. PDMP PDMP Reviewed: Not Reviewed Coding Level of Care Code 56697 Diagnoses Esophageal obstruction due to food impaction T18.128A; [id number].[id number]
== END 2025-11-25 05:11 | disposition home or self-care (01) ==
LOC: ER 04:32 → OPS 05:13
PROVIDERS: Emergency Provider Family Medicine; Visit Provider Specialist
PROC: 0DJ08ZZ Inspection of Upper Intestinal Tract, Via Natural or Artificial Opening Endoscopic (ICD-10-PCS; principal; 2025-11-25 05:20)
DX: T18.128A Food in esophagus causing other injury, initial encounter (principal); W44.F3XA Food entering into or through a natural orifice, initial encounter; I10 Essential (primary) hypertension
CPT/HCPCS: 43247; 71045; 80053; 85025; J0330; J2371; J2704; J3490